=== PATIENT | female | born 1970 | race Caucasian/White ===

== ENCOUNTER 2016-09-21 16:28 | Emergency (ER) | payer BC ==
[~2016-09-21] VITALS: Ht 170.2 cm; Wt 78.5 kg
[2016-09-21 16:48] VITALS: BP 135/78
--- NOTE | 2016-09-21 17:43 | PHYS DOC ---
Past Medical History Past Medical History: No Pertinent History Past Surgical History: Other Additional Past Surgical Histo: UTERINE ABLATION,CAGED FUSION-BACK,FIBROID- LEFT BREAST Alcohol Use: Rarely Drug Use: None Adult General Chief Complaint Chief Complaint: ANKLE PROBLEM [facility] HPI Patient is a 46 year old female presents to the emergency department stating that she's had a year-long right ankle pain and discomfort. Patient states that she was seen by an orthopedic group who put her through physical therapy. She states within the last couple day she started having increased pain and discomfort. She states that she is taken Tylenol and ibuprofen for pain. She denies any new injury. Patient denies any numbness or tingling down to her toes. No significant swelling noted. No redness no bruising noted Review of Systems Review of Systems Constitutional: Denies fever or chills [] Eyes: Denies change in visual acuity, redness, or eye pain [] HENT: Denies nasal congestion or sore throat [] Respiratory: Denies cough or shortness of breath [] Cardiovascular: No additional information not addressed in HPI [] GI: Denies abdominal pain, nausea, vomiting, bloody stools or diarrhea [] : Denies dysuria or hematuria [] Musculoskeletal: Denies back pain. Right ankle pain and discomfort. Integument: Denies rash or skin lesions [] Neurologic: Denies headache, focal weakness or sensory changes [] Endocrine: Denies polyuria or polydipsia [] Allergies Allergies Allergies Coded Allergies Type Severity Reaction Last Updated Verified chlorpheniramine Allergy Intermediate 09/21/16 Yes hydrocodone Allergy Intermediate 09/21/16 Yes levofloxacin Allergy Intermediate 09/21/16 Yes moxifloxacin Allergy Intermediate 09/21/16 Yes Physical Exam Physical Exam Constitutional: Well developed, well nourished, no acute distress, non-toxic appearance. [] HENT: Normocephalic, atraumatic, bilateral external ears normal, oropharynx moist, no oral exudates, nose normal. [] Eyes: PERRLA, EOMI, conjunctiva normal, no discharge. [] Neck: Normal range of motion, no tenderness, supple, no stridor. [] Cardiovascular:Heart rate regular rhythm, no murmur [] Lungs & Thorax: Bilateral breath sounds clear to auscultation [] Skin: Warm, dry, no erythema, no rash. [] Back: No tenderness Extremities: Right medial ankle tenderness, no cyanosis, no clubbing, ROM intact , no edema. No swelling no discoloration noted. Peripheral pulses 2+ cap refill brisk less than 2 seconds. Neurologic: Alert and oriented X 3, normal motor function, normal sensory function, no focal deficits noted. [] Psychologic: Affect normal, judgement normal, mood normal. [] Current Patient Data Vital Signs Vital Signs Date Time Temp Pulse Resp B/P (MAP) Pulse Ox O2 Delivery O2 Flow Rate FiO2 09/21/16 16:48 98.6 72 16 99 Room Air 98.6 EKG EKG [] Radiology/Procedures Radiology/Procedures [] Course & Med Decision Making Course & Med Decision Making Pertinent Labs and Imaging studies reviewed. (See chart for details) X-rays were negative for any bony abnormalities per . Patient will be discharged home with recommendations to follow-up with orthopedic. Recommended ice packs on 20 minutes off 20 minutes several times today Tylenol and ibuprofen for pain and discomfort. She is placed in Jose Daniel wrap and an Air-Stirrup splint with recommendations to wear the Jose Daniel wrap for the next 5-7 days in the Air-Stirrup splint for the next 7-10 days. Signs symptoms to return back to emergency department been provided. Patient agrees with discharge instructions, treatment regimens and follow-up recommendations. [] Dragon Disclaimer Dragon Disclaimer This electronic medical record was generated, in whole or in part, using a voice recognition dictation system. Departure Departure Impression: Primary Impression: Right ankle pain Disposition: 01 HOME, SELF-CARE Condition: STABLE Referrals: REGINE GONZALEZ MD (PCP) Patient Instructions: Ankle Pain Additional Instructions: Your x-rays were negative for any bony abnormalities Wear the Jose Daniel wrap for the next 5-7 days, wear the Air-Stirrup splint for the next 7-10 days. Ice packs on 20 minutes off 20 minutes several times a day. Elevation as much as possible. Tylenol or ibuprofen for pain and discomfort. Follow-up with your orthopedic within the next week. Return back to emergency prior signs symptoms become worse. EDWIN OWUSU APRN Sep 21, 2016 17:43
--- NOTE | 2016-09-22 07:16 | RAD ---
Right ankle radiograph 3 views 09/21/2016 Indication: Chronic right ankle pain with more acute pain medially. Comparison: None. Findings: No acute fracture or traumatic malalignment. There is mild osteophytic spurring at the medial tibiotalar articulation. Ankle mortise and talar dome maintained. There is mild enthesophyte formation at the insertion of the Achilles on the calcaneus. Soft tissues unremarkable. Impression: 1. No acute osseous abnormality. 2. Mild medial ankle osteoarthritis.
== END 2016-09-21 17:52 | disposition home or self-care (01) ==
LOC: ER 16:28
DX: M25.571 Pain in right ankle and joints of right foot (principal); Z88.1 Allergy status to other antibiotic agents; Z88.5 Allergy status to narcotic agent
CPT/HCPCS: 29515; 73610; 99284-25